=== PATIENT | male | born 1955 | race Caucasian/White ===

== ENCOUNTER 2021-10-18 11:06 | Emergency (ER) | payer BC, MEDICARE, OTHER ==
[2021-10-18 11:40] VITALS: BP 126/93; PULSE 76
[2021-10-18 12:05] LABS: ANION GAP 10.1 meq/L (7-15); CHLORIDE,CL 104 mmol/L (98-107); SODIUM,NA 140 mmol/L (136-145)
[2021-10-18] MEDS: Meclizine 25 MG Tab PO ONE (12:11)
== END 2021-10-18 12:30 | disposition home or self-care (01) ==
LOC: LL.ED 11:06
DX: R42 Dizziness and giddiness (principal); I48.91 Unspecified atrial fibrillation; I10 Essential (primary) hypertension; E78.00 Pure hypercholesterolemia, unspecified; J44.9 Chronic obstructive pulmonary disease, unspecified; Z87.891 Personal history of nicotine dependence; Z79.899 Other long term (current) drug therapy; Z79.01 Long term (current) use of anticoagulants
CPT/HCPCS: 36415; 71046; 80053; 83735; 83880; 84484; 85025; 85379; 85610; 93005; 93010; 99284; A9270

== ENCOUNTER 2024-10-11 11:19 | Day surgery (SDC) | payer MEDICARE ==
[~2024-10-11 11:19] MED LIST: Midazolam 1 MG/ML 2 ML SDV ONE; Propofol 200 MG/20 ML SDV ONE
[2024-10-11] MEDS ORDERED: Sodium Chloride 0.9% 10 ML Syringe FLUSH PRN (11:30)
[2024-10-11] MEDS ORDERED: Propofol 200 MG/20 ML SDV IV ONE (12:30)
[2024-10-11] MEDS: Lactated Ringers 1,000 ML IV SCH (12:30)
[2024-10-11 13:19] VITALS: BP 116/80; PULSE 73
== END 2024-10-11 13:32 | disposition home or self-care (01) ==
LOC: LL.SDS 11:19
PROVIDERS: ATTEND Surgery
DX: Z12.11 Encounter for screening for malignant neoplasm of colon (principal); Z80.0 Family history of malignant neoplasm of digestive organs; I10 Essential (primary) hypertension; E78.00 Pure hypercholesterolemia, unspecified; I42.9 Cardiomyopathy, unspecified; I48.20 Chronic atrial fibrillation, unspecified; K21.9 Gastro-esophageal reflux disease without esophagitis; Z79.01 Long term (current) use of anticoagulants; Z79.899 Other long term (current) drug therapy
CPT/HCPCS: J2250; J2704; J7120